=== PATIENT | female | born 1960 | race Caucasian/White ===

== ENCOUNTER 2021-04-24 09:45 | Outpatient (CLI) | payer BC | END 2021-04-24 09:46 | disposition home or self-care (01) | LOC: CSHMAMMO 09:45 | PROVIDERS: ATTEND Family Medicine | DX: Z12.31 Encounter for screening mammogram for malignant neoplasm of breast (principal); Z91.89 Other specified personal risk factors, not elsewhere classified; Z80.3 Family history of malignant neoplasm of breast | CPT/HCPCS: 77063; 77067 ==

== ENCOUNTER 2022-03-18 10:45 | Outpatient (CLI) | payer BC ==
[~2022-03-18 10:45] MED LIST: Iopamidol 300 61% 100 ML VIAL FS ONE
== END 2022-03-18 10:46 | disposition home or self-care (01) ==
LOC: CSHCT 10:45
PROVIDERS: ATTEND Physician Assistant Medical
DX: R19.7 Diarrhea, unspecified (principal); R10.9 Unspecified abdominal pain; D25.9 Leiomyoma of uterus, unspecified
CPT/HCPCS: 74177; 82565